=== PATIENT | female | born 1975 | race Caucasian/White ===

== ENCOUNTER 2018-09-23 09:43 | Inpatient (IN) ==
[2018-09-23] MEDS ORDERED: Bisacodyl 10 MG Supp RECTAL PRN (14:35)
[2018-09-23] MEDS ORDERED: Aluminum/Magnesium/Simethacone Susp 30 ML UDC PO PRN (14:35)
[2018-09-24] MEDS: Senna/Docusate Sodium 8.6/50 MG Tablet PO SCH ×3 (01:21→20:43)
--- NOTE | 2018-09-24 12:02 | P.HPPSY ---
Provisional Diagnosis Admission Date: September 23, 2018 12:11 [place] I.: Bipolar Disorder MRE Mixed without psychosis Post traumatic stress disorder Cocaine use disorder, Cannabis use disorder [place] II.: deferred [place] [facility].: GERD Competence Certification of Person's Competence To Provide Express and Informed Consent I have personally examined Tiara Ray, a person being served at [facility] on, September 24, 2018 1130. Express and informed consent means consent voluntarily given in writing, by a competent person, after sufficient explanation and disclosure of the subject matter involved to enable the person to make a knowing and willful decision without any element of force, fraud, deceit, duress, or other form of constraint or coercion. This person is 18 years of age or older, is not now known to be incompetent to consent to treatment with a guardian advocate, and does not have a health care surrogate or proxy currently making medical treatment decisions. I have found this person to be one of the following: [X] Competent to provide express and informed consent, as defined above, for voluntary admission to this facility and is competent to provide express and informed consent for treatment. He/she has the consistent capacity to make well reasoned, willful, and knowing decisions concerning his or her medical or mental health treatment. The person fully and consistently understands the purpose of the admission for examination/placement and is fully capable of personally exercising all rights assured under [place] [] Incompetent to provide express and informed consent to voluntary admission, and this is incompetent to provide express and informed consent to treatment. The person must be transferred to involuntary status and a petition for a guardian advocate filed with the Circuit Court. [] Refusing to provide express and informed consent to voluntary admission but is competent to provide express and informed consent for treatment. The person must be discharged or transferred to involuntary status. Form shall be completed within 24 hours of a person's arrival at the receiving facility and filed in the clinical record of each person: 1. Admitted on a voluntary basis 2. Permitted to provide express and informed consent to his/her own treatment 3. Allowed to transfer from involuntary to voluntary status 4. Prior to permitting a person to consent to his or her own treatment after having been previously found incompetent to consent to treatment. History of Present Illness Capacity: Has capacity Chief Complaint: I was in a manic phase. I felt like nothing so I treated myself like nothing and tried to kill myself" History of Present Illness: Pt seen and discussed with nursing staff. Chart and medical records from transferring hospital reviewed. Pt is a 43 YOWF with a hx of bipolar disorder, PTSD, cocaine abuse and cannabis abuse who was transferred to [facility] under a BA due to suicide attempt via intentional OD with vistaril and lexaproPt states that she got back with her boyfriend and stopped taking care of herself. "He always tells me I'm stupid and that is what's wrong with me. When I'm with him I just forget about myself and focus everything on him." She states that she stopped taking her psychiatric medications for the past two weeks. She denies medication side effects and reports that regimen of geodon 80mg po Qevening, lexapro 20mg po Qdaily and vistaril 100mg poTID prn panic attacks anxiety works well to manage psychiatric illness when she is compliant. She states that she became manic (no need for sleep, doesn't need to eat, distorted thoughts, hypersexual, impulsive behaviors, grandiosity, and difficulty comprehending) but later developed simultaneous severe depression symptoms. She states her boyfriend broke up with her (which she now thinks is a good thing) and she " just decided to . it was the only thing I could think to do." Records from transferring hospital where pt was admitted for 3 days for cardiac monitoring and tx, states that pt had continued suicidal ideation. She denies SI today. She is noted to be tearful and depressed. Review of labs from transferring hospital shows that pt was positive for cocaine and cannabis. She denies cocaine use stating that she has been sober from cocaine for 4 years (that stuff makes me crazy) but admits to smoking 3-4 joints of cannabis daily that boyfriend provides. "Do you think he's been giving me cocaine? He knows how hard it was for me to stop!" Pt is labile and tearful. "Who is going to want me ? I'm a toothless, ex-crack whore!" She reports hx of extensive trauma and reports that she has hypervigilence, nightmares, flashbacks and panic attacks, which have been well controlled with lexapro ("it takes the edge off and I can relax") and visitaril ("It calms me down and ends panic attacks" She is agreeable to remain in hospital voluntarily. Past Psych hx: hx of past psych hospitalizations and suicide attempts. ( "This is not my first time at the [facility]") Currently receives outpatient psychiatric treatment at [facility] in [place], [place]. Reports has had other trials of medications (difficulty recalling names) but this regimen has been most successful. Family Hx: strong family hx of mental illness. Lyndsey. Grandmother and Aunt have both had psychiatric hospitalizations. 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 Lives with boyfriend, but has made arrangements to return to mother's home in [place]. . Mother of 5 children, 3 of whom are adults. 2 youngest children live with her ex-. Allergies: FISH - Inpatient Certification I certify that the inpatient services were ordered in accordance with Medicare regulations governing the order. This includes certification that hospital inpatient services are reasonable and necessary and in the case of services not specified as inpatient-only under 42 CFR 419.22(n), that they are appropriately provided as inpatient services in accordance to with the 2-midnight benchmark under 43 CFR 412.3(e) I certify that inpatient psychiatric hospital services are medically necessary. Evaluation and treatment and/or diagnostic testing are expected to improve the patient's condition. The patient needs on a daily basis, active treatment furnished directly by or requiring the supervision of inpatient psychiatric facility personnel. Estimated Total Length of Stay (Days): 7 Plans for Post Hospital Care: Home Review of Systems Psychiatric: Reports abnormal sleep pattern, Reports behavioral changes, Reports depression, Reports difficulty concentrating, Reports hopelessness, Reports mood swings PMFSH - History History Provided By: Patient - Medical / Surgical Hx Neg / Unobtainable Surgical History: No Previous Surgery - Medical History Medical History: Medical History (Last Updated 09/24/18 @ 11:51 by Nguyen Fernandes MD) GERD (gastroesophageal reflux disease) - Family History Family History: Family History (Last Updated 09/24/18 @ 11:51 by Nguyen Fernandes MD) Other Bipolar disorder - Social History I have reviewed the patient's Social History: Yes - Tobacco History Second Hand Smoke Exposure: Yes Tobacco Use In Past 30 Days: Yes Smoking Status: Current every day smoker Tobacco Type: Cigarettes - Alcohol History How Often Do You Have a Drink Containing Alcohol: Never - Substance Use History Substance History: Active Abuse - Substance Use Type Crack/Cocaine Status: Active Comment: pt denies any use. tox screen positive -pt denies use Marijuana Status: Active Route Used: Inhalation Frequency: daily Reason for Use: Calm Down, Feels Good Comment: pt did not report amount of use - Travel History Recent Travel in the [place] Within the Last 8 Weeks: No Recent Travel Out of the Country Within the Last 8 Weeks: No - Immunization History Tetanus Immunization: <5 Years Hx Influenza Vaccine This Season: No Quality Measures - Psychiatric History Psychological trauma history: Hx of abuse Violence risk to others in the last 6 months: none Violence risk to self in the last 6 months: S/P recent suicide attempt via OD - Substance Abuse History Drug or alcohol use in the past 12 months: yes. cocaine and cannabis - Patient Strengths Patient's strengths (minimum of 2): has housing, has outpatient psychiatric providers, accepting of mental illness Medications and Allergies Active Medications: Active Medications Al Hydrox/Mg Hydrox/Simethicone (Mag-Al Plus Susp Liq) 30 ml PO Q6H PRN PRN Reason: DYSPEPSIA Al Hydroxide/Mg Hydroxide (Milk Of Magnesia Liq) 30 ml PO Q12H PRN PRN Reason: Mild Constipation Bisacodyl (Dulcolax Supp) 10 mg RECTAL DAILY PRN PRN Reason: SEVERE CONSITIPATION Lactulose (Lactulose Liq) 30 ml PO DAILY PRN PRN Reason: SEVERE CONSITIPATION Senna/Docusate Sodium (Monique-Colace) 1 tab PO BID [facility]ON[facility] Last Admin: 09/24/18 09:06 Dose: Not Given Sennosides (Senokot) 17.2 mg PO Q12H PRN PRN Reason: Moderate Constipation Allergies Allergy/AdvReac Type Severity Reaction Status Date / Time Fish Containing Products Allergy Unknown Hives Unverified 09/24/18 11:55 Home Medications Medication Instructions Recorded Confirmed Type escitalopram oxalate [Lexapro] 20 mg PO DAILY 09/23/18 09/23/18 History hydroxyzine pamoate [Vistaril] 100 mg PO TID 09/23/18 09/23/18 History ziprasidone HCl [Geodon] 80 mg PO QPM 09/23/18 09/23/18 History Exam Vital signs: Vital Signs 09/23/18 13:57 09/24/18 05:56 Temperature 98.0 F 97.6 F Pulse Rate 56 L 55 L Respiratory Rate 18 16 Blood Pressure 98/52 L 95/50 L Pulse Oximetry 96 Intake & Output 09/23/18 09/24/18 09/24/18 18:59 06:59 18:59 Weight 84.5 kg Other: Weight On Admission 84.5 kg - Constitutional no acute distress - Routine HEENT Exam Head: Present: normocephalic Mental Status Examination Appearance: Disheveled, Other (dressed in hospital gown) Consciousness: Alert Orientation: x4 Motor Activity: Normal gait Speech: Unremarkable Language: Adequate Fund of Knowledge: Adequate Attention and Concentration: Easily distracted Memory: Unremarkable Mood: Sad Affect: Labile Thought Process & Associations: Intact Thought Content: Appropriate Hallucination Type: None Delusion Type: None Suicidal Ideation: No (denies today) Suicidal Plan: No Suicidal Intention: No Homicidal Ideation: No Homicidal Plan: No Homicidal Intention: No Insight: Fair Judgment: Impulsive Assessment and Plan - Assessment (1) Bipolar disorder, curr episode mixed, severe, w/o psychotic features Code(s): F31.63 - Bipolar disorder, current episode mixed, severe, without psychotic features Status: Acute (2) Post-traumatic stress disorder, chronic Code(s): F43.12 - Post-traumatic stress disorder, chronic Status: Acute (3) Cocaine abuse, uncomplicated Code(s): F14.10 - Cocaine abuse, uncomplicated Status: Acute (4) Cannabis abuse, uncomplicated Code(s): F12.10 - Cannabis abuse, uncomplicated Status: Acute - Plan Plan: Estimated LOS: [] days Will allow pt to sign for voluntary admission. Will restart home medications as pt reports effective and decompensation appears due to non-compliance. Pt counseled extensively about need for compliance with medications and avoidance of substance abuse. Risks vs benefits of medications were discussed and pt provided consent. Will monitor closely for safety. Pt would benefit from participation in substance abuse treatment program after discharge. Justification for Continued Inpatient Stay: impairments in safety. Discharge Planning: Pt will discharge home to mother's home and follow up with [facility] for outpatient psychiatric treatment in [facility] Request Healthcare Surrogate/Guardian Advocate?: No
[2018-09-24] MEDS ORDERED: risperiDONE 1 MG ODT PO ONE (13:00)
--- NOTE | 2018-09-24 16:56 | P.CONIM ---
History of Present Illness Service: [facility] Consult date: 09/24/18 Requesting Physician: Nguyen Fernandes Reason for Consult: Medical evat. Pt. attempted to strangle self on unit with blanket Primary Care Provider: UNKNOWN Chief Complaint: neck pain History of Present Illness: Ms. Ray is a 43-year-old white female with significant past medical history of bipolar disorder, PTSD, cocaine and cannabis abuse. She presented under [facility] due to suicide attempt via intentional overdose with Vistaril and Lexapro took approximately 120 tabs. Pt. initially admitted to [facility], she was stabilized and then transferred to [facility] for psych evaluation. Pt. endorses having problems with boyfriend after he broke up with her. Pt. was initially in 2600 units, and around 1245 today she was found by mental health techs with a sheet wrapped around her neck. Patient had no fully lost consciousness, but cyanosis was present per nursing report. Initially CODE BLUE was called but changed to Halicat. After event, patient was alert and oriented x4, no obvious focal deficits. Patient was transferred to 2700 unit with camera room and one-to-one sitter. Hospital services requested to evaluate patient. Patient is now evaluated in the presence of mental health tech, she she awakes to voice, is oriented x4. Complains of mild soreness around her neck but otherwise denies any shortness of breath, no difficulty swallowing, no headaches. Denies any chest pain, shortness of breath, no fever, no chills. Denies any medical problems, only on psychiatric meds at home. Denies any cocaine use although she was found positive and she is surprised by this. She admits to occasional marijuana, no alcohol, she smokes 1 pack a day and is requesting a nicotine patch. Denies any cough, no sputum. Review of Systems Review of Systems: all other systems reviewed are negative [facility] Medical History Medical History Cocaine abuse (Acute) Bipolar disorder (Chronic) Marijuana abuse (Chronic) PTSD (post-traumatic stress disorder) (Chronic) Surgical History Surgical History Hx of section (Chronic) Hx of cholecystectomy (Chronic) Family History Family History Other Bipolar disorder Social History Social History Substance History: Active Abuse Second Hand Smoke Exposure: Yes Smoking Status: Current every day smoker Tobacco Type: Cigarettes How Often Do You Have a Drink Containing Alcohol: Never Recent Travel in [place] within the Last 8 Weeks: No Recent Out of Country Travel within the Last 8 Weeks: No Substance Abuse Detail Crack/Cocaine: Substance Use Status: Active Substance Abuse Comment: pt denies any use tox screen positive - pt denies any use in the past 4 years. Marijuana: Substance Use Status: Active Route Used Substance Abuse: Inhalation Substance Frequency: daily Substance Abuse Comment: Patient refused to report amount/quantity/ frequency. Reason for Use: Calm Down and Feels Good Immunization History Tetanus Immunization: <5 Years Hx Influenza Vaccine This Season: No Medications and Allergies Allergies Allergy/AdvReac Type Severity Reaction Status Date / Time Fish Containing Products Allergy Unknown Hives Unverified 09/24/18 11:55 Home Medications Medication Instructions Recorded Confirmed Type escitalopram oxalate [Lexapro] 20 mg PO DAILY 09/23/18 09/23/18 History hydroxyzine pamoate [Vistaril] 100 mg PO TID 09/23/18 09/23/18 History ziprasidone HCl [Geodon] 80 mg PO QPM 09/23/18 09/23/18 History Active Medications: Active Medications Al Hydrox/Mg Hydrox/Simethicone (Mag-Al Plus Susp Liq) 30 ml PO Q6H PRN PRN Reason: DYSPEPSIA Al Hydroxide/Mg Hydroxide (Milk Of Magnesia Liq) 30 ml PO Q12H PRN PRN Reason: Mild Constipation Bisacodyl (Dulcolax Supp) 10 mg RECTAL DAILY PRN PRN Reason: SEVERE CONSITIPATION Escitalopram Oxalate (Lexapro) 20 mg PO DAILY [facility] Hydroxyzine HCl (Atarax) 50 mg PO Q8H PRN PRN Reason: ANXIETY Lactulose (Lactulose Liq) 30 ml PO DAILY PRN PRN Reason: SEVERE CONSITIPATION Senna/Docusate Sodium (Monique-Colace) 1 tab PO BID [facility] Last Admin: 09/24/18 09:06 Dose: Not Given Sennosides (Senokot) 17.2 mg PO Q12H PRN PRN Reason: Moderate Constipation Ziprasidone (Geodon) 80 mg PO DAILY@1700 [facility] Physical Exam Vital signs: Vital Signs 09/24/18 05:56 Temperature 97.6 F Pulse Rate 55 L Respiratory Rate 16 Blood Pressure 95/50 L Pulse Oximetry 96 Intake & Output 09/23/18 09/24/18 09/24/18 18:59 06:59 18:59 Weight 84.5 kg Other: Weight On Admission 84.5 kg Narrative: GENERAL: Well-nourished, well-developed patient in no apparent distress. SKIN: Warm and dry. Scar noted to left cheek, well healed. HEAD: Atraumatic. Normocephalic. EYES: Pupils equal and round. No scleral icterus. No injection or drainage. ENT: No nasal bleeding or discharge. Mucous membranes pink and moist. NECK: Trachea midline. No JVD. Small bruise left neck. Non tender. CARDIOVASCULAR: Regular rate and rhythm. RESPIRATORY: No accessory muscle use. Clear to auscultation. Breath sounds equal bilaterally. GASTROINTESTINAL: Abdomen soft, non-tender, nondistended. Hepatic and splenic margins not palpable. MUSCULOSKELETAL: Extremities without clubbing, cyanosis, or edema. No obvious deformities. NEUROLOGICAL: Awake and alert. No obvious cranial nerve deficits. Motor grossly within normal limits. Five out of 5 muscle strength in the arms and legs. Normal speech. PSYCHIATRIC:sad affect Assessment and Plan (1) Bipolar disorder, curr episode mixed, severe, w/o psychotic features: Code(s): F31.63 - Bipolar disorder, current episode mixed, severe, without psychotic features Status: Acute (2) Post-traumatic stress disorder, chronic: Code(s): F43.12 - Post-traumatic stress disorder, chronic Status: Acute (3) Cocaine abuse, uncomplicated: Code(s): F14.10 - Cocaine abuse, uncomplicated Status: Acute (4) Cannabis abuse, uncomplicated: Code(s): F12.10 - Cannabis abuse, uncomplicated Status: Acute Plan 43-year-old female with history of bipolar disease, PTSD, substance abuse. Admitted to psychiatric services after overdose of Lexapro and Vistaril. Patient with another suicide attempt today, ruptured around neck, did not fully lose consciousness, cyanosis was noted. [facility] services consulted to assist with medical management Suicide attempt Bipolar disorder PTSH Substance abuse -continue with psychiatric management -1:1 monitoring Attempted self strangulation with sheet, did not fully lose consciousness. Pt. was turning cyanotic per nursing report Pt. neurologically intact, c/o mild neck pain, no difficulty swallowing -neuro checs q 4 x 24 hours -monitor for stridor, difficulty swallowing, change in mental status, difficult breathing. -will check cervical spine xray Tobacco abuse -Approximately 15 minutes was spent counseling the patient is cessation techniques. Understands continuing to smoke could lead to stroke and , worsening of COPD. Benefits of stopping also presented to the patient. Patient verbalized desire to "give it a try" regarding smoking cessation and its benefits. -Nicotine patch ordered Plan of care discussed with RN, pt, Dr. Reynolds. Thank you for this consultation , we will continue to follow. Attending Note: Agree with the plan above. I discussed the case with ENGINEER BOOSTER AND EXHAUSTER Gina Johnson. Patient 's vitals, and Xray imaging of c spine reviewed. No signficant findings on imaging. Patient is neurologically intact. No neck pain, swallowing ok. Patient can be continued with care as per psychiatry. Medicine will sign off on the patient. Code Status: Full code Discussed Condition With: RN, pt, Dr. Reynolds, Dr. Fernandes Discharge Planning: Per psych team
--- NOTE | 2018-09-24 21:50 | XR ---
EXAM DATE: 09/24/2018 9:47 PM EST AGE/SEX: 43 years / Female INDICATIONS: Trauma Attempted strangle with sheet. CLINICAL DATA: This is the patient's initial encounter. Patient reports that signs and symptoms have been present for 1 day and indicates a pain score of 4/10. MEDICAL/SURGICAL HISTORY: None. None. COMPARISON: No prior exams available for comparison. FINDINGS: There is normal alignment of the vertebral bodies of the cervical spine and preservation of vertebral body height. Moderate discogenic degenerative changes at C6-7 with anterior posterior osteophytes an d mild right-sided bony neural foraminal stenosis. The atlantoaxial articulation is intact. The preve rtebral soft tissues are normal in thickness. CONCLUSION: No evidence of compression deformity or spondylolisthesis. Moderate degenerative changes at C5-6. Electronically signed by: Khanh Nogueira MD Board Certified Radiologist 09/24/2018 9:48 PM EST
[2018-09-25] MEDS: Senna/Docusate Sodium 8.6/50 MG Tablet PO SCH ×2 (08:02→21:07)
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
[2018-09-26] MEDS: Senna/Docusate Sodium 8.6/50 MG Tablet PO SCH ×2 (08:44→21:27)
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
[2018-09-26] MEDS: Zolpidem Tartrate 5 MG Tablet PO PRN (21:24)
[2018-09-27] MEDS: Senna/Docusate Sodium 8.6/50 MG Tablet PO SCH ×2 (08:41→20:35)
--- NOTE | 2018-09-27 08:58 | P.TTN ---
- Patient Problems Problems: 1. Discharge planning 2. Medication compliance 3. Knowledge deficit 4. Lack of coping skills - Progress Toward Goals Provider Present: Other Provider Input: 09/27/18 Patient is doing better, possible discharge tomorrow. Nurse Input: 09/27/18 Patient is med compliant, had difficulty sleeping, eating well. Psychiatric Counselors Present: Stephanie Talbert [facility] Psychiatric Therapist Input: 09/27/18 Patient seen in her room. Patient is med compliant, reports did not sleep well, last night, alert and oriented x4, appetite ok. Group Spec/RT/OT/DEL RIO Present: QUANG Butts Group Spec/RT/OT/DEL RIO Input: 09/27/18 Patient participates in groups appropriately. - Documentation Teaching Recipient: Patient
[2018-09-27 09:29] LABS: Calcium 8.6 mg/dL (8.5-10.1); Potassium 4.4 meq/L (3.5-5.1)
[2018-09-27 09:33] LABS: Chol/HDL Ratio 3.76 Ratio
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
[2018-09-27 17:22] LABS: Hemoglobin A1c 5.5 % (4.3-6.0)
--- NOTE | 2018-09-27 19:48 | ECG ---
Date Performed: 09/26/2018 Time Performed: 13:55:15 PTAGE: 43 years EKG: SINUS BRADYCARDIA BORDERLINE ECG NO PREVIOUS TRACING DOCTOR: Darcy Sandra Interpretating Date/Time 09/27/2018 19:46:18
[2018-09-27] MEDS: Zolpidem Tartrate 5 MG Tablet PO PRN ×2 (20:08→21:49)
[2018-09-28] MEDS: Senna/Docusate Sodium 8.6/50 MG Tablet PO SCH ×2 (11:41→20:29)
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
[2018-09-28] MEDS: Zolpidem Tartrate 5 MG Tablet PO PRN (22:49)
[2018-09-29] MEDS: Senna/Docusate Sodium 8.6/50 MG Tablet PO SCH ×2 (09:31→21:34)
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
[2018-09-29] MEDS: Zolpidem Tartrate 5 MG Tablet PO PRN (21:34)
[2018-09-30] MEDS: Senna/Docusate Sodium 8.6/50 MG Tablet PO SCH ×2 (10:26→20:54)
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
--- NOTE | 2018-09-30 14:56 | P.TTN ---
- Patient Problems Problems: 1. Discharge planning 2. Medication compliance 3. Knowledge deficit 4. Lack of coping skills - Progress Toward Goals Provider Present: Other Provider Input: 09/30/18 Patient is doing better discharge tomorrow. 09/27/18 Patient is doing better, possible discharge tomorrow. Nurse Input: 09/30/18 Patient is med compliant, eating sleeping well, no behavioral problems on unit. 09/27/18 Patient is med compliant, had difficulty sleeping, eating well. Psychiatric Counselors Present: Stephanie Talbert [facility] Psychiatric Therapist Input: 09/30/18 Patient is doing well. Patient is med compliant, denies suicidal and homicidal ideation, organized thinking, alert x4. 09/27/18 Patient seen in her room. Patient is med compliant, reports did not sleep well, last night, alert and oriented x4, appetite ok. Group Spec/RT/OT/DEL RIO Present: QUANG Butts Group Spec/RT/OT/DEL RIO Input: 09/30/18 Patient participates in groups appropriately. 09/27/18 Patient participates in groups appropriately. - Documentation Teaching Recipient: Patient
[2018-09-30 17:18] VITALS: RESP 18; O2SAT 97
[2018-09-30] MEDS: Zolpidem Tartrate 5 MG Tablet PO PRN (22:42)
[2018-10-01 05:52] VITALS: BP 103/62; PULSE 57; TEMP 97.9
[2018-10-01] MEDS: Senna/Docusate Sodium 8.6/50 MG Tablet PO SCH (08:29)
--- NOTE | 2018-10-02 02:06 | ECG ---
Date Performed: 09/30/2018 Time Performed: 12:43:34 PTAGE: 43 years EKG: Sinus rhythm NORMAL ECG PREVIOUS TRACING : 09/26/2018 13.55 Since the previous tracing, no significant change noted DOCTOR: Efrain Espinoza Interpretating Date/Time 10/02/2018 02:05:01
== END 2018-10-01 10:00 | disposition home or self-care (01) | DRG 885 ==
LOC: H260 12:11 → H270 09-24 13:59 → H260 09-26 13:37
PROVIDERS: ADMIT Psychiatry & Neurology Psychiatry; ATTEND Psychiatry & Neurology Psychiatry
DX: Z91.14 Patient's other noncompliance with medication regimen; F12.10 Cannabis abuse, uncomplicated; T43.221A Poisoning by selective serotonin reuptake inhibitors, accidental (unintentional), initial encounter; F14.10 Cocaine abuse, uncomplicated; X83.8XXA Intentional self-harm by other specified means, initial encounter; F17.210 Nicotine dependence, cigarettes, uncomplicated; F43.12 Post-traumatic stress disorder, chronic; K21.9 Gastro-esophageal reflux disease without esophagitis; Y92.230 Patient room in hospital as the place of occurrence of the external cause; Z81.8 Family history of other mental and behavioral disorders; Z63.0 Problems in relationship with spouse or partner; F41.0 Panic disorder [episodic paroxysmal anxiety]; N89.8 Other specified noninflammatory disorders of vagina; Z91.5 Personal history of self-harm; R23.0 Cyanosis; T14.91XA Suicide attempt, initial encounter; M54.2 Cervicalgia; Z91.411 Personal history of adult psychological abuse; F31.63 Bipolar disorder, current episode mixed, severe, without psychotic features
CPT/HCPCS: 72050; 80048; 80061; 83036; 87491; 87591; 93005; C9204; J3486; Q0163